=== PATIENT | female | born 1975 | race Caucasian/White ===

== ENCOUNTER 2017-02-18 11:32 | Emergency (ER) | payer SELFPAY ==
[~2017-02-18] VITALS: Ht 165.1 cm; Wt 61.5 kg
[2017-02-18 11:32] VITALS: BP 129/73; PULSE 72; RESP 16; TEMP 99.2; O2SAT 100
[2017-02-18 12:48] LABS: BILIRUBIN, URINE NEG (NEG); BLOOD, URINE NEG (NEG); GLUCOSE,URINE NEG (NEG); KETONE, URINE NEG (NEG); NITRITE,URINE NEG (NEG); SQUAMOUS EPITHELIAL CELL URINE 2 /hpf (0-5); TRICHOMONAS, URINE RARE; URINE COLOR LIGHT-YELLOW (YELLW/STRAW); URINE LEUKOCYTE ESTERASE LARGE (NEG)
[2017-02-18] MEDS ORDERED: METR250 PO (15:36)
--- NOTE | 2017-02-18 15:36 | PD ---
HPI Chief Complaint: Maintenance Associate Problem/Complaint Time Seen by Provider: 15:11 Travel History International Travel<30 days: No Contact w/Intl Traveler<30days: No Traveled to known affect area: No History of Present Illness HPI 41-year-old female came to the emergency room with history of vaginal discharge and burning in her vaginal area. Patient says this is been going on for past couple days. [facility] stays at a [facility]. She has not had sexual intercourse for 8 months. Vital signs were stable otherwise. No history of fever or chills. [facility] Past Medical History Narrative Medical List of her past medical, surgical, social and family history is reviewed from the nursing note. ?: Not LMP: 02/15/17 Social History Tobacco Use: Yes Allergies-Medications (Allergen,Severity, Reaction): Coded Allergies: oxycodone (Verified Allergy, Unknown, 02/18/17) Comments List of her allergies reviewed from the nursing note. Reported Meds & Prescriptions Reported Meds & Active Scripts Active Flagyl (Metronidazole) 250 Mg Tab 250 Mg PO TID 7 Days Narrative Medication List of her home medications reviewed from the nursing note. Review of Systems Except as stated in HPI: all other systems reviewed are Neg Genitourinary: Positive: Discharge Physical Exam Narrative GENERAL: Awake, alert, mild distress SKIN: Focused skin assessment warm/dry. HEAD: Atraumatic. Normocephalic. EYES: Pupils equal and round. No scleral icterus. No injection or drainage. ENT: No nasal bleeding or discharge. Mucous membranes pink and moist. NECK: Trachea midline. No JVD. CARDIOVASCULAR: Regular rate and rhythm. No murmur appreciated. RESPIRATORY: No accessory muscle use. Clear to auscultation. Breath sounds equal bilaterally. GASTROINTESTINAL: Abdomen soft, non-tender, nondistended. Hepatic and splenic margins not palpable. : External appearance of the genitalia is within acceptable limits. Speculum exam was a little difficult since patient was extremely sensitive. There was noticed to be very thick yellowish to greenish discharge in the vaginal vault that was foul smelling. I was unable to locate the cervix. Cultures were collected. MUSCULOSKELETAL: No obvious deformities. No clubbing. No cyanosis. No edema. NEUROLOGICAL: Awake and alert. No obvious cranial nerve deficits. Motor grossly within normal limits. Normal speech. PSYCHIATRIC: Appropriate mood and affect; insight and judgment normal. Data Data Last Documented VS Vital Signs Date Time Temp Pulse Resp B/P (MAP) Pulse Ox O2 Delivery O2 Flow Rate FiO2 02/18/17 15:40 02/18/17 11:32 99.2 72 16 100 Room Air Orders Orders Urinalysis - C+S If Indicated (02/18/17 11:58) Ed Urine Pregnancytest Poc (02/18/17 11:58) Urine Culture (02/18/17 12:20) Gc And Chlamydia Pcr (02/18/17 15:13) Wet Prep Profile (02/18/17 15:13) Metronidazole (Flagyl) (02/18/17 15:45) Azithromycin Powd Pack (Zithromax Powd P (02/18/17 15:45) Ceftriaxone Inj (Rocephin Inj) (02/18/17 15:45) Lidocaine 1% Inj (50 Ml) (Xylocaine 1% I (02/18/17 15:45) Ed Discharge Order (02/18/17 15:36) Labs Laboratory Tests Test 02/18/17 12:20 02/18/17 15:30 Urine Color LIGHT-YELLOW Urine Turbidity CLEAR Urine pH 7.0 Urine Specific [place] 1.004 Urine Protein NEG mg/dL Urine Glucose (UA) NEG mg/dL Urine Ketones NEG mg/dL Urine Occult Blood NEG Urine Nitrite NEG Urine Bilirubin NEG Urine Urobilinogen LESS THAN 2.0 MG/DL Urine Leukocyte Esterase LARGE Urine RBC 4 /hpf Urine WBC 13 /hpf Urine Squamous Epithelial Cells 2 /hpf Urine Trichomonas RARE Microscopic Urinalysis Comment CULTURE INDICATED Clue Cells (Wet Prep) NS Vaginal Trichomonas (Wet Prep) PRESENT Vaginal Yeast (Wet Prep) NS Chlamydia trachomatis DNA (PCR) NOT DETECTED Neisseria gonorrhoeae DNA (PCR) NOT DETECTED MDM Medical Decision Making Medical Screen Exam Complete: Yes Emergency Medical Condition: Yes Medical Record Reviewed: Yes Differential Diagnosis STD, PID Narrative Course 3:45 PM given the appearance on my physical exam I find the need to go ahead and treat this patient without waiting for the test results. The wet mount and the GC and chlamydia are still pending but I've given her IM Rocephin, by mouth Zithromax and Flagyl. She'll go home with a prescription for Flagyl. was negative. Procedures EKG Prior to Arrival: No Diagnosis Primary Impression: Cervicitis Referrals: Primary Care Physician Additional Instructions: Take the medication as per the prescription direction and finish the course. Return to the ER if the condition worsens or any other new concerns. If the test results performed today come back positive we'll receive a phone call in which case your sexual partner(s) will need to be treated as well. Med/Other Pt SpecificInfo: Prescription(s) given Scripts Metronidazole (Flagyl) 250 Mg Tab 250 MG PO TID for Infection for 7 Days, TAB 0 Refills Prov: Genny Orozco MD 02/18/17 Disposition: 01 DISCHARGE HOME Condition: Stable Genny Orozco MD Feb 18, 2017 15:36
[2017-02-18] MEDS ORDERED: metroNIDAZOLE 500 MG TAB PO ONE (15:45)
[2017-02-18] MEDS ORDERED: cefTRIAXone 250 MG VIAL IM ONE (15:45)
[2017-02-18] MEDS ORDERED: AZITHROMYCIN PWD FOR SUSP 1 GM PACKET PO ONE (15:45)
[2017-02-18] MEDS ORDERED: LIDOCAINE HCL 1% 50 ML VIAL IM ONE (15:45)
== END 2017-02-18 15:55 | disposition home or self-care (01) ==
LOC: NEPD 11:32
DX: N72 Inflammatory disease of cervix uteri (principal); B95.1 Streptococcus, group B, as the cause of diseases classified elsewhere; Z72.0 Tobacco use; Z59.0 Homelessness
CPT/HCPCS: 81001; 84703; 86403; 87086; 87210; 87491; 87591; 96372; 99284; J0696